=== PATIENT | male | born 1955 | race Caucasian/White ===

== ENCOUNTER 2016-12-31 09:23 | Emergency (ER) | payer OTHER ==
[~2016-12-31] VITALS: Ht 180.3 cm; Wt 99.8 kg
[2016-12-31 09:26] VITALS: BP 166/84
--- NOTE | 2016-12-31 09:38 | ED NECK/BACK PAIN COMPLAINT ---
History of Present Illness General Chief Complaint: Low Back Pain/Injury Stated Complaint: LOW BACK PAIN Source: patient, family Exam Limitations: no limitations Vital Signs & Intake/Output Vital Signs & Intake/Output Vital Signs Date Time Temp Pulse Resp B/P Pulse O2 O2 Flow FiO2 Ox Delivery Rate 01/01 936 99 Room Air 12/31 925 97.4 87 20 166/84 97 Room Air Reconcile Medications Cyclobenzaprine HCl 10 MG TABLET 1 TAB PO TID PRN MUSCLE RELAXANT MAY CAUSE DROWSINESS Meloxicam (Mobic) 15 MG TABLET 1 TAB PO DAILY PRN PAIN/INFLAMMATION Tramadol HCl 50 MG TABLET 1-2 TAB PO Q6 PRN pain may cause drowsiness Triage Note: PT TO ED C/O LOWER BACK PAIN SINCE TUESDAY. 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 Triage Nurses Notes Reviewed? yes HPI: Patient is a 61-year-old male presents complaining of low back pain. Patient reports pain onset on Tuesday, is a dull pain at rest, spasm sensation with movements and position changes. Patient has been taking Aleve with minimal improvement. Patient reports he was lifting and moving an air compressor on Tuesday, does not recall any specific inciting injury but believes that lifting the air compressor may have caused his pain. Pain is nonradiating. Patient denies numbness, weakness, incontinence, abdominal pain, falls. (LEONARDO THOMPSON) Allergies Coded Allergies: NO KNOWN ALLERGIES (12/31/16) (JAD IRELAND DO) Past History Travel History Traveled to [place] past 21 day No Medical History Any Pertinent Medical History? see below for history Cardiovascular: hypertension, hyperlipidemia Other Medical Hx: Comminuted left femur fracture Surgical History Surgical History: laparotomy 1979 Psychosocial History Who do you live with Spouse Services at Home None What is your primary language Arabic Tobacco Use: Quit >30 days ago ETOH Use: denies use Illicit Drug Use: denies illicit drug use Family History Hx Contributory? No (LEONARDO THOMPSON) Review of Systems Review of Systems Constitutional: Denies: chills, fever. Eyes: Reports: no symptoms. Ears, Nose, Throat, Mouth: Reports: no symptoms. Respiratory: Denies: short of breath. Cardiovascular: Denies: chest pain. Gastrointestinal/Abdominal: Denies: abdominal pain. Musculoskeletal: Reports: see HPI. Skin: Reports: no symptoms. Neurological/Psychological: Denies: numbness, paresthesia, unable to move lower ext, unable to move upper ext, weakness. (LEONARDO THOMPSON) Physical Exam Physical Exam General Appearance: well developed/nourished, alert, awake Head: atraumatic, normal appearance Eyes: Bilateral: normal appearance, PERRL, EOMI. Ears, Nose, Throat, Mouth: hearing grossly normal, moist mucous membrane Neck: normal inspection, supple, full range of motion, no midline tenderness Respiratory: normal breath sounds, chest non-tender, no respiratory distress, lungs clear Cardiovascular: regular rate/rhythm Peripheral Pulses: 2+ dorsalis pedis (R), 2+ dorsalis pedis (L) Gastrointestinal: soft, non-tender, no palpable masses Back: normal inspection, normal range of motion, mild bilateral lower lumbar tenderness 2-3 cm from midline. No midline tenderness Extremities: non-tender, normal range of motion Straight Leg Raising: Right: Negative. Left: Negative. DTR: Patellar: 2: L4 Right, L4 Left. Achilles: 2: S1 Right, S1 Left. Neurologic/Psych: no motor/sensory deficits, awake, alert, oriented x 3, normal mood/affect Skin: intact, normal color, warm/dry (LEONARDO THOMPSON) Progress Differential Diagnosis: AAA, aortic dissection, cauda equina syn, herniated disc , myofascial strain, pyelo/UTI, sciatica, spinal cord inj, T/L spine injury, ureterolithiasis, TRANSVERSE MYELITIS, EPIDURAL ABSCESS Plan of Care: Current Medications Sig/Daniel Start time Last Medication Dose Stop Time Status Admin Cyclobenzaprine HCl 10 MG ONCE ONE 12/31 1000 UNVr (Flexeril 10MG Tab) 12/31 1001 Dexamethasone 8 MG ONCE ONE 12/31 1000 UNVr (Decadron) 12/31 1001 Tramadol HCl 50 MG ONCE ONE 12/31 1000 UNVr (Ultram) 12/31 1001 No red flags on exam or by history. Imaging and labs deferred. Will treat conservatively and have patient follow up with his primary care doctor if no improvement. (LEONARDO THOMPSON) Departure Departure Time of Disposition: 950 Disposition: HOME OR SELF CARE Condition: Stable Clinical Impression Primary Impression: Lumbar strain Qualifiers: Encounter type: initial encounter Qualified Code: S39.012A - Strain of muscle, fascia and tendon of lower back, initial encounter Secondary Impressions: Back muscle spasm Referrals: LEONID GREGORY,Portia OLIVER (PCP/Family) Additional Instructions: Apply heat to your low back for 10-20 minutes 4-5 times a day. Follow up with your primary doctor next week if no improvement by Tuesday. Return to the ER if numbness, weakness, incontinence, pain uncontrollable or worsening of symptoms. Departure Forms: Customer Survey General Discharge Information Prescriptions: Current Visit Scripts Meloxicam (Mobic) 1 TAB PO DAILY PRN PAIN/INFLAMMATION #7 TAB Tramadol HCl 1-2 TAB PO Q6 PRN pain #15 TAB may cause drowsiness Cyclobenzaprine HCl 1 TAB PO TID PRN MUSCLE RELAXANT #20 TAB MAY CAUSE DROWSINESS ([place] LOW,LEONARDO) PA/SENIOR ACCOUNTING MANAGER Co-Sign Statement Statement: ED Attending supervision documentation- [] I saw and evaluated the patient. I have also reviewed all the pertinent lab results and diagnostic results. I agree with the findings and the plan of care as documented in the PA's/SENIOR ACCOUNTING MANAGER's documentation. [x] I have reviewed the ED Record and agree with the PA's/SENIOR ACCOUNTING MANAGER's documentation. [] Additions or exceptions (if any) to the PAs/SENIOR ACCOUNTING MANAGER's note and plan are summarized below: [] (JAD IRELAND DO
[2016-12-31] MEDS ORDERED: TRAMADOL HCL50 M1 PO (09:53)
[2016-12-31] MEDS ORDERED: MOBIC15 M1 PO (09:53)
[2016-12-31] MEDS ORDERED: CYCLOBENZAPRINE10 M1 PO (09:53)
== END 2016-12-31 10:00 ==
LOC: ERH 09:23
DX: S39.012A Strain of muscle, fascia and tendon of lower back, initial encounter (principal); M62.830 Muscle spasm of back; X50.0XXA Overexertion from strenuous movement or load, initial encounter; Y93.89 Activity, other specified; Y92.9 Unspecified place or not applicable